=== PATIENT | male | born 1985 ===

== ENCOUNTER → 2017-10-09 | Outpatient (CLI) | payer BC ==
[2017-10-11 05:32] LABS: Source Urine
== END | disposition home or self-care (01) ==
LOC: LAB EV 12:41
PROVIDERS: Physician Assistant Surgical
DX: R30.0 Dysuria (principal)
CPT/HCPCS: 87086; 87491; 87591; 87661

== ENCOUNTER → 2019-04-18 | Outpatient (CLI) | payer BC | END | disposition home or self-care (01) | LOC: LAB SHORT 10:51 → PLD 10:51 | DX: L57.0 Actinic keratosis (principal) | CPT/HCPCS: 88305 ==

== ENCOUNTER → 2020-06-19 | Outpatient (CLI) | payer BC ==
[2020-06-21 17:18] LABS: CORONAVIRUS (COVID19) CSH-NRL Negative (Negative)
== END ==
LOC: LAB 17:54 → LAB SHORT 17:54
PROVIDERS: Chiropractor
DX: Z20.828 Contact with and (suspected) exposure to other viral communicable diseases (principal)
CPT/HCPCS: U0003